=== PATIENT | male | born 1965 | race African-American/Black ===

== ENCOUNTER 2017-08-22 13:36 | Emergency (ER) | payer OTHER ==
[~2017-08-22] VITALS: Ht 190.5 cm; Wt 108.9 kg
[~2017-08-22 13:36] MED LIST: DOXYCYCLINE HY100 M1 PO; IBUPROFEN800 MG PO; NKM; VICODIN ES 7.51 EACH PO
[2017-08-22 13:44] VITALS: BP 162/97
[2017-08-22] MEDS ORDERED: PRADAXA110 MG PO ×2 (13:58→14:09)
--- NOTE | 2017-08-22 14:09 | Emergency Room Report ---
History of Present Illness General Chief Complaint: Medication Refill Present Illness HPI 52-year-old male patient presents ER requesting medication refill for prepacks of. States that he has been taking the medication for 3 years secondary to his congestive heart failure. Reports he has not been able to contact his primary care provider, was in contact with since his insurance provider who suggested he go to the ER to get a refill the prescription since he has not been able to take the medication for the past 4 days. Denies acute symptoms at this time. Denies fever, chest pain, shortness of breath, calf pain, other acute symptoms. Allergies: Coded Allergies: No Known Allergies (Unverified , 12/13/11) Patient History Past Medical History: see triage record Reviewed Nursing Documentation: PMH: Agreed; PSxH: Agreed Nursing Documentation-PMH Hx Cardiac Problems: Yes - CHF Hx Hypertension: Yes Hx Diabetes: Yes Review of Systems All Other Systems: negative except mentioned in HPI Physical Exam Vital Signs Date Time Temp Pulse Resp B/P (MAP) Pulse Ox O2 Delivery O2 Flow Rate FiO2 08/22/17 13:44 98.1 68 20 162/97 95 Room Air 98.1 Sp02 EP Interpretation: reviewed, normal General Appearance: well appearing, no apparent distress, alert, GCS 15, non- toxic Head: normocephalic, atraumatic Eyes: bilateral eye normal inspection, bilateral eye PERRL ENT: hearing grossly normal, normal pharynx, no angioedema, normal voice, uvula midline, moist mucus membranes Neck: full range of motion Respiratory: lungs clear, normal breath sounds, no rhonchi, no respiratory distress, no accessory muscle use, no wheezing, speaking full sentences Cardiovascular #1: regular rate, rhythm, no edema Musculoskeletal: back normal, digits/nails normal, gait/station normal, normal range of motion, non-tender, no calf tenderness, Parth's Sign negative Neurologic: alert, oriented x3, responsive, motor strength/tone normal, sensory intact Psychiatric: mood/affect normal Skin: no rash Medical Decision Making PA Attestation Dr. Valle is my supervising Physician whom patient management has been discussed with. Diagnostic Impression: Primary Impression: Encounter for medication refill ER Course Pt. presents to the ED requesting prescription refill. Multiple differentials were considered. Vital signs: are WNL, pt. is afebrile ORDERS: PE benign, lungs clear to auscultation,No wheezes rhonchi or rales, no calf Swelling. Patient denies acute complaints at this time. patient vital stable, nontoxic appearing, does not require lab workup at this time. Will provide patient with prescription refill. States that he takes 150 mg twice a day. Contact primary care provider for further treatment. Informed patient ER cannot provide refills in the future; followup, management and prescription of long-term medications must be performed by primary care provider. Patient reports understanding and agreement, will follow-up with PCP. DISCHARGE: Rx provided for Pradaxa At this time pt is stable for d/c to home. Patient is resting comfortably, in no acute distress, nontoxic appearing, talking without difficulty. Patient to take medications as instructed Will provide with patient care instructions and any necessary prescriptions. Care plan and follow-up instructions provided. Patient instructed to follow-up with primary care provider in 3 - 5 days. Patient questions asked and answered. Patient reports understanding and agreement to treatment plan. ER precautions given. Patient instructed to return to ER immediately for any new or worsening of symptoms including but not limited to increasing SOB, persistent fever. - Please note that this Emergency Department Report was dictated using [employer] technology software, occasionally this can lead to erroneous entry secondary to interpretation by the dictation equipment. Last Vital Signs Date Time Temp Pulse Resp B/P (MAP) Pulse Ox O2 Delivery O2 Flow Rate FiO2 08/22/17 13:44 98.1 68 20 162/97 95 Room Air 98.1 Disposition: HOME, SELF-CARE Condition: Stable Scripts Dabigatran Etexilate Mesylate (Pradaxa) 110 Mg Capsule 150 MG PO BID, #20 CAP Prov: Nbole Baxter 08/22/17 Patient Instructions: Medicine Refill at the Emergency Department Additional Instructions: Followup with primary care provider in 3 -5 days. Take medications as directed. ER does not normally provide refills of medications. Management and treatment of chronic conditions must come from PCP. Patient questions asked and answered. ER precautions given, patient instructed to return to ER immediately for any new or worsening of symptoms. Noble Baxter Aug 22, 2017 14:09
[2017-08-22 14:15] VITALS: BP 162/97
== END 2017-08-22 14:15 | disposition home or self-care (01) ==
LOC: EMR 14:10
DX: Z76.0 Encounter for issue of repeat prescription (principal); I50.9 Heart failure, unspecified; I10 Essential (primary) hypertension; E11.9 Type 2 diabetes mellitus without complications
CPT/HCPCS: 99283